=== PATIENT | male | born 1960 | race Caucasian/White ===

== ENCOUNTER 2023-02-01 09:40 | Day surgery (SDC) | payer BC ==
[~2023-02-01 09:40] MED LIST: Lactated Ringers 1,000 ML IV SCH
[2023-02-01] MEDS ORDERED: Lidocaine 2% 5 ML SDV ONE (10:22)
[2023-02-01] MEDS ORDERED: Propofol 200 MG/20 ML SDV ONE ×2 (10:22→10:42)
[2023-02-01] MEDS ORDERED: Lactated Ringers 1,000 ML IV SCH (11:15)
== END 2023-02-01 11:46 | disposition home or self-care (01) ==
LOC: MW.SDS 09:40
PROVIDERS: ATTEND Surgery
DX: Z12.11 Encounter for screening for malignant neoplasm of colon (principal); K62.1 Rectal polyp; K57.30 Diverticulosis of large intestine without perforation or abscess without bleeding; J44.9 Chronic obstructive pulmonary disease, unspecified; Z87.891 Personal history of nicotine dependence; Z98.890 Other specified postprocedural states; Z79.899 Other long term (current) drug therapy
CPT/HCPCS: 45380; J2704; J7120; 00811; J3490